=== PATIENT | female | born 1965 | race Caucasian/White ===

== ENCOUNTER 2020-06-13 15:52 | Emergency (ER) | payer MEDICAID, SELFPAY ==
[2020-06-13 15:52] VITALS: BP 151/98; PULSE 117; O2SAT 98
[2020-06-13 15:59] VITALS: BP 151/98; PULSE 113; RESP 17; TEMP 36.9; O2SAT 98; BMI 27.6
--- NOTE | 2020-06-13 16:04 | [facility].EDMCLR ---
ED Disposition Clinical Impression: Encounter for medical clearance for patient hold Disposition: Home, Self-Care Condition on Discharge: Fair Instructions: Alcohol and Stress: There are Safer Ways to [place] Referrals: Payam Ortiz MD [Staff Physician] - - Critical Care Critical Care Time: No Attestation: On , the high probability of a clinically significant, sudden or life threatening deterioration of the following system(s) required my full and direct attention, intervention and personal management. The time I documented below is in addition to time spent performing reported procedures but includes the following listed in this critical care notation. Medical Decision Making - Medical Records Medical records reviewed: Yes: I reviewed the patient's medical records. - David Inquiry Pt receiving controlled substance: No Vital Signs: 06/13/20 15:52 06/13/20 15:59 Temperature 98.5 F Temperature Source Oral Pulse Rate [Left] 117 H Pulse Rate [Right Radial] 113 H Respiratory Rate 17 Blood Pressure [Left Arm] 151/98 H Blood Pressure [Right Arm] 151/98 H Blood Pressure Mean [Left Arm] 115 Blood Pressure Mean [Right Arm] 115 Blood Pressure Source [Left Arm] Automatic Cuff Blood Pressure Position [Left Arm] Supine 02 Sat by Pulse Oximetry 98 98 Oxygen Delivery Method Room Air Room Air Medical Decision Narrative: 54-year-old female presented to the emergency department for medical clearance. Patient is asymptomatic. She is alert and appropriate. Ambulatory. Answering questions without difficulty. Declines any further medical treatment. Patient will be discharged in police custody. Medical Clearance HPI - General Chief complaint: Medical Clearance Stated complaint: Medical Clearance Time Seen by Provider: 06/13/20 15:55 Mode of Arrival: Ambulatory Description of Symptoms (Recalled from ER Triage Doc. by RN): pt to ed accompanied by pd for medical clearance for [facility]p. pt denies drug use states she has had 1-2 beers today. pt reports daily drinking at home. pt denies pain/injury/complaints at this time. - History of Present Illness HPI Narrative: 54-year-old female presented to the emergency department for medical clearance. Patient is currently in police custody. She denies any symptoms at this time. Patient does admit to drinking 1 or 2 beers earlier today. However patient is alert and appropriate. She is answering all my questions without difficulty. She denies any headache or change in vision. No focal weakness. No fevers or chills. No chest pain or shortness of breath. No abdominal pain or vomiting. Allergies/Adverse reactions: Allergies Allergy/AdvReac Type Severity Reaction Status Date / Time No Known Allergies Allergy Verified 06/13/20 16:02 [facility] History - Hepatitis A Screen Drug use history?: Yes High risk sexual behaviors?: No History of sexually transmitted infection?: No Currently employed?: No Childcare worker?: No Do you have indoor plumbing?: Yes Do you have electricity?: Yes Attestation statement:: This patient has been screened for Hepatitis A risk factors. I have reviewed the patient's past medical history: Yes ROS Obtained: Yes All systems reviewed & no additional complaints - Constitutional Constitutional: Denies chills, Denies fever(s) - Cardiovascular Cardiovascular: Denies chest pain - Respiratory Respiratory: No dyspnea - Gastrointestinal Gastrointestingal: Denies: abdominal pain, vomiting - Musculoskeletal Musculoskeletal: Denies joint swelling - Integumentary/Breasts Skin/Breast: Denies rash - Neurologic Neurologic: Denies headache(s) Physical Exam - General General appearance: alert, in no apparent distress - Head Head exam: atraumatic, normocephalic - Eye Eye exam: Present: normal appearance, PERRL, EOMI - Neck Neck exam: Present: normal inspection, full ROM - Respiratory Respiratory exam: Absent
[2020-06-13 16:08] VITALS: BP 151/98; PULSE 108; RESP 15; TEMP 36.9; O2SAT 99
== END 2020-06-13 16:23 | disposition home or self-care (01) ==
PROVIDERS: Emergency Provider Emergency Medicine
DX: Z00.8 Encounter for other general examination (principal); F10.10 Alcohol abuse, uncomplicated
CPT/HCPCS: 99283